=== PATIENT | female | born 1965 | race African-American/Black ===

== ENCOUNTER → 2016-07-10 | Outpatient (CLI) | payer OTHER ==
[2016-07-10 11:07] LABS: CH 30.5; CHCM 31.7; HCT 41.7 % (34.0-46.0); HGB 13.6 gm/dL (11.4-16.0); MCH 31.5 pg (25.0-35.0); MCHC 32.5 g/dL (31.0-37.0); MCV 96.8 fL (80.0-100.0); Mean Platelet Volume 7.4; RBC 4.31 m/uL (3.80-5.40); RDW 13.3 % (11.5-15.5); WBC 8.6 k/uL (3.8-10.6)
[2016-07-10 11:29] LABS: ALT 29 U/L (9-52); AST 20 U/L (14-36); Alkaline Phosphatase 60 U/L (38-126); Anion Gap 10 mmol/L; Blood Urea Nitrogen 22 mg/dL (7-17); Calcium 10.2 mg/dL (8.4-10.2); Carbon Dioxide 31 mmol/L (22-30); Chloride 101 mmol/L (98-107); Cholesterol 162 mg/dL (<200); Glucose 114 mg/dL (74-99); HDL Cholesterol 66 mg/dL (40-60); Non-African American GFR(MDRD) >60 (>60 ml/min/1.73 sqM); Potassium 4.3 mmol/L (3.5-5.1); Sodium 142 mmol/L (137-145); Total Bilirubin 0.6 mg/dL (0.2-1.3); Total Protein 7.5 g/dL (6.3-8.2); Triglycerides 111 mg/dL (<150)
[2016-07-10 12:06] LABS: Hemoglobin A1C 5.5 % (4.2-6.1)
== END | disposition home or self-care (01) ==
LOC: LABWHC1 10:44
PROVIDERS: ATTEND Internal Medicine
DX: Z00.00 Encounter for general adult medical examination without abnormal findings (principal); I11.9 Hypertensive heart disease without heart failure; E78.2 Mixed hyperlipidemia; M19.90 Unspecified osteoarthritis, unspecified site; M54.5 Low back pain; R73.9 Hyperglycemia, unspecified
CPT/HCPCS: 36415; 80053; 80061; 83036; 84439; 84443; 85027

== ENCOUNTER → 2016-10-01 | Outpatient (CLI) | payer OTHER ==
--- NOTE | 2016-10-02 11:57 | MM ---
Reason for exam: screening (asymptomatic). Last mammogram was performed 1 year and 3 months ago. History: Patient is postmenopausal. Family history of breast cancer in sister at age 42. Took hormonal contraceptives for 3 years beginning at age 22. Physical Findings: A clinical breast exam by your physician is recommended on an annual basis and results should be correlated with mammographic findings. MG Screening Mammo w CAD Bilateral CC and MLO view(s) were taken. Prior study comparison: July 16, 2015, bilateral MG screening mammo w CAD. May 15, 2014, bilateral MG screening mammo w CAD. The breast tissue is heterogeneously dense. This may lower the sensitivity of mammography. No significant changes when compared with prior studies. ASSESSMENT: Benign, BI-RAD 2 RECOMMENDATION: Routine screening mammogram of both breasts in 1 year.
== END | disposition home or self-care (01) ==
LOC: RADMAMWWP 13:39
PROVIDERS: ATTEND Internal Medicine
DX: Z12.31 Encounter for screening mammogram for malignant neoplasm of breast (principal)

== ENCOUNTER → 2017-09-15 | Outpatient (CLI) | payer OTHER ==
[2017-09-15 08:26] LABS: HCT 42.6 % (34.0-46.0); HGB 13.6 gm/dL (11.4-16.0); MCH 30.6 pg (25.0-35.0); MCV 95.7 fL (80.0-100.0); Mean Platelet Volume 7.3; Platelet Count 249 k/uL (150-450); RBC 4.45 m/uL (3.80-5.40); RDW 13.7 % (11.5-15.5); WBC 8.1 k/uL (3.8-10.6)
[2017-09-15 08:58] LABS: ALT 32 U/L (9-52); AST 25 U/L (14-36); Albumin 4.3 g/dL (3.5-5.0); Alkaline Phosphatase 54 U/L (38-126); Anion Gap 12 mmol/L; Blood Urea Nitrogen 19 mg/dL (7-17); Calcium 10.2 mg/dL (8.4-10.2); Carbon Dioxide 30 mmol/L (22-30); Chloride 102 mmol/L (98-107); Cholesterol 173 mg/dL (<200); Glucose 117 mg/dL (74-99); HDL Cholesterol 56 mg/dL (40-60); LDL Cholesterol,Calculated 86 mg/dL (0-99); Potassium 4.2 mmol/L (3.5-5.1); Sodium 144 mmol/L (137-145); Total Bilirubin 0.6 mg/dL (0.2-1.3); Total Protein 7.1 g/dL (6.3-8.2); Triglycerides 154 mg/dL (<150)
[2017-09-15 09:00] LABS: T4, Free (Free Thyroxine) 1.01 ng/dL (0.78-2.19)
--- NOTE | 2017-09-15 09:41 | XR ---
EXAMINATION TYPE: XR chest 2V DATE OF EXAM: 09/15/2017 COMPARISON: 05/23/2014 INDICATION: Hypertensive heart disease TECHNIQUE: Frontal and lateral views of the chest are obtained. FINDINGS: The heart size is normal. The pulmonary vasculature is normal. The lungs are clear. IMPRESSION: 1. No acute pulmonary process.
[2017-09-15 20:02] LABS: Hemoglobin A1C 5.9 % (4.0-6.0)
== END | disposition home or self-care (01) ==
LOC: LABWHC1 08:00
PROVIDERS: ATTEND Internal Medicine
DX: Z00.00 Encounter for general adult medical examination without abnormal findings (principal); E11.9 Type 2 diabetes mellitus without complications; I11.9 Hypertensive heart disease without heart failure; K21.0 Gastro-esophageal reflux disease with esophagitis; M19.90 Unspecified osteoarthritis, unspecified site
CPT/HCPCS: 36415; 71046; 80053; 80061; 82043; 82570; 83036; 84439; 84443; 85027

== ENCOUNTER → 2017-12-14 | Outpatient (CLI) | payer OTHER ==
[2017-12-14 13:13] VITALS: BP 171/96; PULSE 78; TEMP 98.1; BMI 37.5
--- NOTE | 2017-12-14 13:49 | P.HPOB ---
History of Present Illness H&P Date: 12/14/17 Chief Complaint: The patient is here for her routine gynecologic exam and mammogram. This is a 52-year-old with an LMP of 2010. The patient is without gynecologic complaints. She denies any postmenopausal bleeding. She is currently being treated with antibiotics for boils on her inner thighs. Review of Systems The patient has lost 3 pounds over the last 2 year. She denies respiratory, cardiac, or G.I. problems. 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 She has no other history of STDs. 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 - Past Family History Sister(s) Family Medical History: Cancer (Breast) Brother(s) Family Medical History: Cancer (Renal) Mother Family Medical History: Dementia, Diabetes Mellitus Medications and Allergies Home Medications Medication Instructions Recorded Confirmed Type Furosemide [Lasix] 20 mg PO DAILY 10/24/14 12/14/17 History HYDROcodone/APAP 7.5-325MG [[place] 1 each PO Q6HR PRN 10/24/14 12/14/17 History 7.5-325] Orphenadrine [Norflex] 100 mg PO Q12H #10 tablet.er 10/24/14 12/14/17 Rx Spironolactone [Aldactone] 25 mg PO BID 10/24/14 12/14/17 History amLODIPine [Norvasc] 10 mg PO DAILY 10/24/14 12/14/17 History cloNIDine HCL [Catapres] 0.1 mg PO TID 10/24/14 12/14/17 History Ciprofloxacin [Cipro Susp] ml PO BID 12/14/17 History Allergies Allergy/AdvReac Type Severity Reaction Status Date / Time Penicillins Allergy Unknown Verified 12/14/17 13:09 Exam Vital Signs Temp Pulse BP 12/14/17 13:09 98.1 F 78 171/96 Intake and Output 12/13/17 12/14/17 12/14/17 22:59 06:59 14:59 Other: Weight 108.862 kg Height 5'7", BMI 37.6. This is a well-developed well-nourished heavyset black female who is alert and oriented times 3 in no acute distress. HEENT: Within normal limits. NECK: Supple without mass or thyromegaly. CHEST AND LUNGS: Clear to auscultation. HEART: Regular rate and rhythm. BREASTS: Are without mass or discharge. AXILLARY EXAM: Negative for adenopathy. BACK: Negative for CVA tenderness. ABDOMEN: Soft, nontender, without palpable masses. PELVIC EXAM: Normal external genitalia with mild atrophy. Cervix and vagina appear normal with mild atrophy. There is no unusual discharge. There is no evidence of prolapse. The uterus is midposition, nongravid size and nontender. There are no palpable adnexal masses or tenderness. RECTAL EXAM: rectovaginal exam is negative for mass or tenderness and is negative for occult blood. EXTREMITIES: Nontender. There are bilateral boil type lesions on the inner thighs. One on each side. Each measures approximately 1.5 cm. Both are noninflamed. Both are nontender. IMPRESSION: 1. 52-year-old menopausal female with normal gynecologic exam. 2. Elevated blood pressure with history of chronic hypertension. PLAN: 1. Pap smear was performed. 2. Self breast awareness was discussed with the patient. 3. Screening mammogram will be done today. 4. I have recommended screening colonoscopy based on her age. She states she is in the process of arranging this through Dr. Soto. 5. Osteoporosis prevention was discussed. 6. She has been notified about her elevated blood pressure. She stated she has a way to check her own blood pressure. I recommend checking it on a regular basis and following up with Dr. Soto for blood pressure elevations. 7. She will return one year.
--- NOTE | 2017-12-16 08:59 | MM ---
Reason for exam: screening (asymptomatic). Last mammogram was performed 1 year and 2 months ago. History: Patient is postmenopausal. Family history of breast cancer in sister at age 42. Took hormonal contraceptives for 3 years beginning at age 22. Physical Findings: A clinical breast exam by your physician is recommended on an annual basis and results should be correlated with mammographic findings. MG Screening Mammo w CAD Bilateral CC and MLO view(s) were taken. Prior study comparison: October 01, 2016, bilateral MG screening mammo w CAD. July 16, 2015, bilateral MG screening mammo w CAD. The breast tissue is heterogeneously dense. This may lower the sensitivity of mammography. No significant changes when compared with prior studies. ASSESSMENT: Benign, BI-RAD 2 RECOMMENDATION: Routine screening mammogram of both breasts in 1 year.
== END | disposition home or self-care (01) ==
LOC: WWCWWP 12:41
PROVIDERS: ATTEND Obstetrics & Gynecology
DX: Z12.31 Encounter for screening mammogram for malignant neoplasm of breast (principal)
CPT/HCPCS: 77067

== ENCOUNTER → 2018-06-10 | Outpatient (CLI) | payer OTHER ==
--- NOTE | 2018-06-10 17:12 | CT ---
EXAMINATION TYPE: CT brain wo con DATE OF EXAM: 06/10/2018 COMPARISON: 06/02/2012 HISTORY: MICHEL x1 month CT DLP: 1109 mGycm Automated exposure control for dose reduction was used. FINDINGS: Cerebellar tonsils are slightly low-lying in position at the level the foramen magnum. Changes of chr onic sinusitis. Calcifications within the basal ganglia are noted and are stable from the prior exam. Ventricular system compatible with the patient's age. No midline shift or mass effect. Calvarium intact. No acute hemorrhage. IMPRESSION: NO ACUTE INTRACRANIAL PROCESS. CEREBELLAR TONSILS SLIGHTLY LOW-LYING IN POSITION WITHOUT EVIDENCE OF DISCRETE CHIARI MALFORMATION. CORRELATE WITH MRI CLINICALLY WARRANTED.
== END | disposition home or self-care (01) ==
LOC: RADCTMAIN 16:18
PROVIDERS: ATTEND Internal Medicine
DX: R51 Headache (principal)
CPT/HCPCS: 70450

== ENCOUNTER → 2018-06-15 | Outpatient (CLI) | payer OTHER ==
--- NOTE | 2018-06-16 06:26 | MR ---
EXAMINATION TYPE: MR brain wo con DATE OF EXAM: 06/15/2018 COMPARISON: CT brain from 5 days ago. HISTORY: Headaches, abnormal CT. TECHNIQUE: Multiplanar, multisequence imaging of the brain and brainstem is performed without IV cont rast. FINDINGS: Diffusion weighted images demonstrate no evidence of a recent infarct or other diffusion abnormality. There is no worrisome extraaxial fluid collection. The ventricular system and cisternal spaces are n ormal in size and appearance. The brain volume is age appropriate. There are scattered foci of T2 hy perintensity seen throughout the deep and periventricular white matter. Approximately 30-40 scattered small lesions are seen. Midline structures demonstrate normal morphology. The craniocervical junction appears within normal limits on MRI. Normal vascular flow voids are present. Some tortuous course to the posterior circulat ion is incidentally noted. Mild to moderate mucosal thickening inferiorly in left maxillary sinus is redemonstrated otherwise paranasal sinuses are clear. Globes are intact bilaterally. IMPRESSION: 1. No suspicious inferior descent of cerebellar tonsils to suggest Chiari I malformation. 2. Mild to moderate nonspecific white matter changes may be on basis of altered vascular mechanics re lated to product of migraine headaches. 3. Mild to moderate inferior chronic left maxillary sinus disease redemonstrated.
== END ==
LOC: RADMRIMAIN 18:57
PROVIDERS: ATTEND Internal Medicine
DX: R90.89 Other abnormal findings on diagnostic imaging of central nervous system (principal)
CPT/HCPCS: 70551

== ENCOUNTER 2019-03-04 14:49 | Emergency (ER) | payer OTHER ==
[2019-03-04] MEDS ORDERED: METOCLOPRAMIDE 5 MG/ML 2 ML VIAL IVP STA (15:39)
[2019-03-04] MEDS ORDERED: diphenhydrAMINE 50 MG/ML 1 ML VIAL IVP STA (15:39)
[2019-03-04] MEDS ORDERED: SODIUM CHLORIDE 0.9% 500 ML 500 ML IV STA (15:39)
[2019-03-04] MEDS ORDERED: hydrALAZINE HCL 20 MG/ML 1 ML VIAL IVP STA ×2 (15:51→16:42)
[2019-03-04] MEDS ORDERED: KETOROLAC 30 MG/ML 1 ML VIAL IVP STA (15:51)
[2019-03-04 15:57] LABS: Basophils # (A) 0.1 k/uL (0-0.2); Basophils % (A) 1 %; Eosinophils # (A) 0.2 k/uL (0-0.7); Eosinophils % (A) 2 %; HGB 13.1 gm/dL (11.4-16.0); Lymphocytes % (A) 22 %; MCH 30.4 pg (25.0-35.0); MCHC 31.2 g/dL (31.0-37.0); MCV 97.5 fL (80.0-100.0); Mean Platelet Volume 6.6; Monocytes # (A) 0.3 k/uL (0-1.0); Monocytes % (A) 3 %; Neutrophils # (A) 6.6 k/uL (1.3-7.7); Neutrophils % (A) 70 %; Platelet Count 268 k/uL (150-450); RBC 4.31 m/uL (3.80-5.40); RDW 13.2 % (11.5-15.5); WBC 9.4 k/uL (3.8-10.6)
--- NOTE | 2019-03-04 16:03 | ED ---
General Adult HPI - General Chief complaint: Headache Stated complaint: Headache/nosebleed Time Seen by Provider: 03/04/19 15:22 Source: patient, RN notes reviewed Mode of arrival: ambulatory Limitations: no limitations - History of Present Illness Initial comments: 53-year-old female with a past medical history of asthma, hypertension, chronic back problems presents to the emergency department for a chief complaint of headache. Patient states she checked her blood pressure at home has been high. States that she was on 4 different blood pressure medications however her doctor retired several months ago and she has not received refills for these. On review of her records these are Catapres, Norvasc, Aldactone, and Lasix. Patient states she has had headaches like this several times before. She denies this being the worst headache. Denies any thunderclap onset or neck stiffness or rigidity. Patient states headache has come and gone gradually. She has had this exact headaches several times prior.Patient has no other complaints at this time including shortness of breath, chest pain, abdominal pain, nausea or vomiting, or visual changes. - Related Data Home Medications Medication Instructions Recorded Confirmed Furosemide [Lasix] 20 mg PO DAILY 10/24/14 12/14/17 HYDROcodone/APAP 7.5-325MG [[place] 1 each PO Q6HR PRN 10/24/14 12/14/17 7.5-325] Spironolactone [Aldactone] 25 mg PO BID 10/24/14 12/14/17 amLODIPine [Norvasc] 10 mg PO DAILY 10/24/14 12/14/17 cloNIDine HCL [Catapres] 0.1 mg PO TID 10/24/14 12/14/17 Ciprofloxacin [Cipro Susp] ml PO BID 12/14/17 Previous Rx's Medication Instructions Recorded Orphenadrine [Norflex] 100 mg PO Q12H #10 tablet.er 10/24/14 Furosemide [Lasix] 20 mg PO BID #14 tab 03/04/19 Spironolactone [Aldactone] 25 mg PO BID #14 tablet 03/04/19 amLODIPine [Norvasc] 10 mg PO DAILY #7 tablet 03/04/19 cloNIDine HCL [Catapres] 0.1 mg PO TID #21 tab 03/04/19 Allergies Allergy/AdvReac Type Severity Reaction Status Date / Time Penicillins Allergy Unknown Verified 03/04/19 15:11 Review of Systems ROS Statement: Those systems with pertinent positive or pertinent negative responses have been documented in the HPI. ROS Other: All systems not noted in ROS Statement are negative. 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 She has no other history of STDs. History of Any Multi-Drug Resistant Organisms: None Reported Past Surgical History: Hernia Repair, Tubal Ligation Additional Past Surgical History / Comment(s): d and C Past Psychological History: No Psychological Hx Reported Smoking Status: Never smoker Past Alcohol Use History: Occasional Past Drug Use History: Cocaine, Marijuana - Past Family History Sister(s) Family Medical History: Cancer (Breast) Brother(s) Family Medical History: Cancer (Renal) Mother Family Medical History: Dementia, Diabetes Mellitus General Exam Limitations: no limitations General appearance: alert, in no apparent distress Head exam: Present: atraumatic, normocephalic, normal inspection Eye exam: Present: normal appearance, PERRL, EOMI. Absent: scleral icterus, conjunctival injection, periorbital swelling ENT exam: Present: normal exam, normal oropharynx, mucous membranes moist, TM's normal bilaterally, normal external ear exam Neck exam: Present: normal inspection, full ROM. Absent: tenderness, meningismus, lymphadenopathy Respiratory exam: Present: normal lung sounds bilaterally. Absent: respiratory distress, wheezes, rales, rhonchi, stridor Cardiovascular Exam: Present: regular rate, normal rhythm, normal heart sounds. Absent: systolic murmur, diastolic murmur, rubs, gallop, clicks Neurological exam: Present: alert, oriented X3, CN II-XII intact, normal gait, other (GCS 15) Psychiatric exam: Present: normal affect, normal mood Course Vital Signs 03/04/19 03/04/19 03/04/19 15:09 16:00 16:25 Temperature 99.4 F Pulse Rate 99 Respiratory 16 Rate Blood Pressure 178/89 175/87 180/90 O2 Sat by Pulse 96 Oximetry Medical Decision Making - Medical Decision Making Patient presents for headache and hypertension. Patient states she is out of her antihypertensives for the past several months as her doctor retired and her blood pressure has been high. States it has been causing her main headaches on and off. States she has had these headaches several times before. No symptoms of thunderclap headache. States this headache is not the worst she has had. Patient initially had a blood pressure 178/89. Patient was given hydralazine and this did improve to 158/89. Patient was also given medications for her headache and did have significant improvement in pain. Patient requesting started at this time. She'll be discharged home to follow up with primary care. I did give her referral. I also renewed her blood pressure medications for one week. - Lab Data Result diagrams: 03/04/19 15:51 03/04/19 15:51 Lab Results 03/04/19 03/04/19 Range/Units 15:51 15:51 WBC 9.4 (3.8-10.6) k/uL RBC 4.31 (3.80-5.40) m/uL Hgb 13.1 (11.4-16.0) gm/dL Hct 42.0 (34.0-46.0) % MCV 97.5 (80.0-100.0) fL MCH 30.4 (25.0-35.0) pg MCHC 31.2 (31.0-37.0) g/dL RDW 13.2 (11.5-15.5) % Plt Count 268 (150-450) k/uL Neutrophils % 70 % Lymphocytes % 22 % Monocytes % 3 % Eosinophils % 2 % Basophils % 1 % Neutrophils # 6.6 (1.3-7.7) k/uL Lymphocytes # 2.0 (1.0-4.8) k/uL Monocytes # 0.3 (0-1.0) k/uL Eosinophils # 0.2 (0-0.7) k/uL Basophils # 0.1 (0-0.2) k/uL Sodium 140 (137-145) mmol/L Potassium 4.0 (3.5-5.1) mmol/L Chloride 106 (98-107) mmol/L Carbon Dioxide 28 (22-30) mmol/L Anion Gap 6 mmol/L BUN 21 H (7-17) mg/dL Creatinine 0.94 (0.52-1.04) mg/dL Est GFR (CKD-EPI)AfAm 81 (>60 ml/min/1.73 sqM) Est GFR (CKD-EPI)NonAf 71 (>60 ml/min/1.73 sqM) Glucose 92 (74-99) mg/dL Calcium 9.4 (8.4-10.2) mg/dL Total Bilirubin 0.7 (0.2-1.3) mg/dL AST 28 (14-36) U/L ALT 31 (9-52) U/L Alkaline Phosphatase 64 (38-126) U/L Total Protein 6.8 (6.3-8.2) g/dL Albumin 4.0 (3.5-5.0) g/dL Disposition Clinical Impression: Hypertension, Headache Disposition: HOME SELF-CARE Condition: Good Instructions (If sedation given, give patient instructions): Acute Headache (ED), Hypertension (ED) Additional Instructions: Please take blood pressure medications as directed. Please follow-up with primary care in 1-2 days. If you have any worsening symptoms return to the emergency department. Prescriptions: Spironolactone [Aldactone] 25 mg PO BID #14 tablet cloNIDine HCL [Catapres] 0.1 mg PO TID #21 tab Furosemide [Lasix] 20 mg PO BID #14 tab amLODIPine [Norvasc] 10 mg PO DAILY #7 tablet Is patient prescribed a controlled substance at d/c from ED?: No Referrals: Otf Brownlee MD [REFERRING] - 1-2 days Time of Disposition: 17:03
[2019-03-04 16:17] LABS: Calcium 9.4 mg/dL (8.4-10.2); Total Bilirubin 0.7 mg/dL (0.2-1.3); Total Protein 6.8 g/dL (6.3-8.2)
[2019-03-04 17:12] VITALS: BP 158/91; PULSE 97; RESP 18; TEMP 98.7
== END 2019-03-04 17:25 | disposition home or self-care (01) ==
LOC: EC 14:49
DX: I10 Essential (primary) hypertension (principal); R51 Headache; Z76.0 Encounter for issue of repeat prescription; Z88.0 Allergy status to penicillin; Z79.899 Other long term (current) drug therapy; Z53.8 Procedure and treatment not carried out for other reasons
CPT/HCPCS: 36415; 80053; 85025; 99283; 96374; 96375 ×3; 96361; J0360; J1200; J2765; J1885

== ENCOUNTER 2019-04-17 23:15 | Emergency (ER) | payer OTHER ==
[2019-04-17 23:23] VITALS: BP 183/96; PULSE 105; TEMP 98.3
--- NOTE | 2019-04-17 23:56 | ED ---
ENT HPI - General Chief complaint: ENT Stated complaint: Throat Pain Time Seen by Provider: 04/17/19 23:30 Source: patient, RN notes reviewed, old records reviewed Mode of arrival: ambulatory - History of Present Illness Initial comments: This is a 54-year-old female DF for evaluation 2 weeks of severe sore throat difficulty swallowing and dysphagia. She is able to eat and drink. She does admit to occasional fevers patient's medical history of diabetes high blood pressure no sick contacts or travel history. Patient currently states the pain is worse on the right than the left worse when she swallows MD complaint: sore throat -: days(s) Location: R ear, throat Severity: mild Severity scale (1-10): 3 Quality: aching Consistency: constant Improves with: none Worsens with: none Context- Ear: recent illness Associated Symptoms: cough, pain with swallowing - Related Data Home Medications Medication Instructions Recorded Confirmed Furosemide [Lasix] 20 mg PO DAILY 10/24/14 12/14/17 HYDROcodone/APAP 7.5-325MG [[place] 1 each PO Q6HR PRN 10/24/14 12/14/17 7.5-325] Spironolactone [Aldactone] 25 mg PO BID 10/24/14 12/14/17 amLODIPine [Norvasc] 10 mg PO DAILY 10/24/14 12/14/17 cloNIDine HCL [Catapres] 0.1 mg PO TID 10/24/14 12/14/17 Ciprofloxacin [Cipro Susp] ml PO BID 12/14/17 Previous Rx's Medication Instructions Recorded Orphenadrine [Norflex] 100 mg PO Q12H #10 tablet.er 10/24/14 Furosemide [Lasix] 20 mg PO BID #14 tab 03/04/19 Spironolactone [Aldactone] 25 mg PO BID #14 tablet 03/04/19 amLODIPine [Norvasc] 10 mg PO DAILY #7 tablet 03/04/19 cloNIDine HCL [Catapres] 0.1 mg PO TID #21 tab 03/04/19 Allergies Allergy/AdvReac Type Severity Reaction Status Date / Time Penicillins Allergy Unknown Verified 04/17/19 23:23 Review of Systems ROS Statement: Those systems with pertinent positive or pertinent negative responses have been documented in the HPI. ROS Other: All systems not noted in ROS Statement are negative. 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 She has no other history of STDs. History of Any Multi-Drug Resistant Organisms: None Reported Past Surgical History: Hernia Repair, Tubal Ligation Additional Past Surgical History / Comment(s): d and C Past Psychological History: No Psychological Hx Reported Smoking Status: Never smoker Past Alcohol Use History: Occasional Past Drug Use History: None Reported - Past Family History Sister(s) Family Medical History: Cancer (Breast) Brother(s) Family Medical History: Cancer (Renal) Mother Family Medical History: Dementia, Diabetes Mellitus General Exam General appearance: alert, in no apparent distress Head exam: Present: atraumatic, normocephalic, normal inspection Eye exam: Present: normal appearance, PERRL, EOMI. Absent: scleral icterus, conjunctival injection, periorbital swelling ENT exam: Present: other (Significant bilateral tonsillar erythema tonsillar stones right-sided). Absent: normal oropharynx (Erythema normal Sof-Rol elevation right sided lymphadenopathy anterior cervical) Neck exam: Present: normal inspection. Absent: tenderness, meningismus, lymphadenopathy Respiratory exam: Present: normal lung sounds bilaterally. Absent: respiratory distress, wheezes, rales, rhonchi, stridor Cardiovascular Exam: Present: normal rhythm, tachycardia, normal heart sounds. Absent: systolic murmur, diastolic murmur, rubs, gallop, clicks GI/Abdominal exam: Present: soft, normal bowel sounds. Absent: distended, tenderness, guarding, rebound, rigid Extremities exam: Present: normal inspection, full ROM, normal capillary refill. Absent: tenderness, pedal edema, joint swelling, calf tenderness Back exam: Present: normal inspection Neurological exam: Present: alert, oriented X3, CN II-XII intact Psychiatric exam: Present: normal affect, normal mood Skin exam: Present: warm, dry, intact, normal color. Absent: rash Course Vital Signs 04/17/19 23:20 Temperature 98.3 F Pulse Rate 105 H Respiratory 19 Rate Blood Pressure 183/96 O2 Sat by Pulse 98 Oximetry - Reevaluation(s) Reevaluation #1: 04/17/19 23:55 Medical record is reviewed Reevaluation #2: 04/17/19 23:55 Patient able to eat and drink Medical Decision Making - Medical Decision Making 54 female here for evaluation, patient with pharyngitis treat appropriately patient can be discharged - Lab Data Lab Results 04/17/19 Range/Units 23:26 Group A Strep Rapid Negative (Negative) Disposition Clinical Impression: Sore throat, Acute pharyngitis Disposition: HOME SELF-CARE Condition: Good Instructions (If sedation given, give patient instructions): Pharyngitis (ED) Is patient prescribed a controlled substance at d/c from ED?: No Referrals: None,Stated [Primary Care Provider] - 1-2 days
[2019-04-18 00:04] VITALS: RESP 20
== END 2019-04-18 00:04 | disposition home or self-care (01) ==
LOC: EC 23:15
DX: J02.9 Acute pharyngitis, unspecified (principal); I10 Essential (primary) hypertension; E11.9 Type 2 diabetes mellitus without complications; Z79.899 Other long term (current) drug therapy; Z88.0 Allergy status to penicillin
CPT/HCPCS: 87081; 87430; 99283

== ENCOUNTER → 2019-09-15 | Outpatient (CLI) | payer MEDICAID | END | disposition home or self-care (01) | LOC: LABWHC1 09:05 | PROVIDERS: ATTEND Surgery Plastic and Reconstructive Surgery | DX: Z11.59 Encounter for screening for other viral diseases (principal) ==

== ENCOUNTER 2019-09-20 09:10 | Day surgery (SDC) | payer MEDICAID, OTHER ==
[2019-09-18 11:28] VITALS: BMI 34.9
--- NOTE | 2019-09-19 20:45 | P.GSHP ---
History of Present Illness H&P Date: 09/20/19 CHIEF COMPLAINT: Colon screen HISTORY OF PRESENT ILLNESS: The patient is a 54-year-old female who presents for colon screen. Lower endoscopy was offered for further evaluation and management. PAST MEDICAL HISTORY: Please see list. PAST SURGICAL HISTORY: Please see list. MEDICATIONS: Please see list. ALLERGIES: Please see list. SOCIAL HISTORY: No illicit drug use FAMILY HISTORY: No reports of Crohn disease or ulcerative colitis. REVIEW OF ORGAN SYSTEMS: CONSTITUTIONAL: No reports of fevers or chills. PHYSICAL EXAM: VITAL SIGNS: Stable GENERAL: Well-developed pleasant in no acute distress. HEENT: No scleral icterus. Extraocular movements grossly intact. Moist buccal mucosa. NECK: Supple without lymphadenopathy. CHEST: Unlabored respirations. Equal bilateral excursions. CARDIOVASCULAR: Regular rate and rhythm. Distal 2+ pulses. ABDOMEN: Soft, nontender, nondistended. MUSCULOSKELETAL: No clubbing, cyanosis, or edema. ASSESSMENT: 1. Colon screen. PLAN: 1. Recommend proceeding with a lower endoscopy Past Medical History Past Medical History: Asthma, GERD/Reflux, Hypertension, Sleep Apnea/CPAP/BIPAP Additional Past Medical History / Comment(s): Asthma hx. "Borderline diabetic." OA knees, hand; Chronic back pain, 2 herniated discs. Tonsil stones, recently treated. Not using CPAP currently. History of Any Multi-Drug Resistant Organisms: None Reported Past Surgical History: Hernia Repair, Tubal Ligation Additional Past Surgical History / Comment(s): D&C. ORIF Rt 4th finger. Past Anesthesia/Blood Transfusion Reactions: Previous Problems w/ Anesthesia Additional Past Anesthesia/Blood Transfusion Reaction / Comment(s): Hard to awaken from anesthesia. Smoking Status: Never smoker - Past Family History Sister(s) Family Medical History: Cancer Additional Family Medical History / Comment(s): breast cancer Brother(s) Family Medical History: Cancer Mother Family Medical History: Dementia, Diabetes Mellitus Medications and Allergies Home Medications Medication Instructions Recorded Confirmed Type amLODIPine [Norvasc] 10 mg PO DAILY #7 tablet 03/04/19 09/18/19 Rx Acetaminophen [Tylenol Extra 500 mg PO DIRECTED PRN 09/18/19 09/18/19 History Strength] Acetaminophen/Diphenhydramine 1 tab PO HS PRN 09/18/19 09/18/19 History [Tylenol PM 500-25mg] Furosemide [Lasix] 20 mg PO DAILY 09/18/19 09/18/19 History Spironolactone [Aldactone] 50 mg PO BID 09/18/19 09/18/19 History cloNIDine HCL [Catapres] 0.1 mg PO BID 09/18/19 09/18/19 History Allergies Allergy/AdvReac Type Severity Reaction Status Date / Time Penicillins Allergy Unknown Verified 09/18/19 10:56
[~2019-09-20 09:10] MED LIST: LACTATED RINGERS 1,000 ML IV SCH; LIDOCAINE 1% (10MG/ML) FOR IV START INTRADERMA PRN
[2019-09-20 09:37] VITALS: RESP 16; TEMP 97.3
[2019-09-20] MEDS ORDERED: PROPOFOL 10 MG/ML 20 ML VIAL IV ONE (10:14)
--- NOTE | 2019-09-20 10:18 | P.HPADDEND ---
H&P Addendum H&P Addendum Date: 09/20/19 Patient presents for first colonoscopy exam. Denies any family history of colon polyps of colon cancers. We'll proceed with lower endoscopy.
[2019-09-20 10:33] VITALS: BP 118/67; PULSE 77
--- NOTE | 2019-09-20 10:35 | P.PCN ---
Date of Procedure: 09/20/19 Description of Procedure: PREOPERATIVE DIAGNOSIS: Colonoscopy screening. POSTOPERATIVE DIAGNOSIS: Colonoscopy screening. Diverticulosis, scattered. OPERATION: Colonoscopy to the ileocecal valve and appendiceal orifice. SURGEON: Maureen Garnica MD. ANESTHESIA: MAC. INDICATIONS: The patient is a 54-year-old female who presents for her first colonoscopy screening. Benefits and risks were described and informed consent was obtained. DESCRIPTION OF PROCEDURE: The patient had undergone Suprep. She had been brought into the operating room and laid in the left lateral decubitus position. After adequate intravenous sedation, the rectum was examined with 2% lidocaine jelly. No external hemorrhoids were encountered. The rectal tone was within normal limits. No lesions were palpated in the rectal vault. An Olympus colonoscope was advanced until the ileocecal valve and appendiceal orifice were clearly viewed. The prep was excellent with clear visualization of the mucosal folds. The scope was removed with visualization of each mucosal fold. Few very small scattered diverticulosis was encountered. No colonic polyps were found. No evidence of focal colitis was found. Retroflexion of the scope demonstrated no internal hemorrhoids without active bleeding or inflammation. The colon was desufflated. The patient had tolerated the procedure well. Withdrawal time was over 6 minutes. FINDINGS: Aronchick preparation quality scale 1 (1-5) No internal hemorrhoids No external prolapsed hemorrhoids. No arteriovenous malformations. No adenomatous polyps. No focal colitis. RECOMMENDATIONS: Lower endoscopy every 10 years per screening guidelines, 2029 Plan - Discharge Summary Discharge Rx Participant: No New Discharge Prescriptions: Continue amLODIPine [Norvasc] 10 mg PO DAILY #7 tablet Acetaminophen [Tylenol Extra Strength] 500 mg PO DIRECTED PRN PRN Reason: Pain Acetaminophen/Diphenhydramine [Tylenol PM 500-25mg] 1 tab PO HS PRN PRN Reason: sleep Furosemide [Lasix] 20 mg PO DAILY cloNIDine HCL [Catapres] 0.1 mg PO BID Spironolactone [Aldactone] 50 mg PO BID Discharge Medication List amLODIPine [Norvasc] 10 mg PO DAILY #7 tablet 03/04/19 [Rx] Acetaminophen [Tylenol Extra Strength] 500 mg PO DIRECTED PRN 09/18/19 [History] Acetaminophen/Diphenhydramine [Tylenol PM 500-25mg] 1 tab PO HS PRN 06/01/20 [History] Furosemide [Lasix] 20 mg PO DAILY 09/18/19 [History] Spironolactone [Aldactone] 50 mg PO BID 09/18/19 [History] cloNIDine HCL [Catapres] 0.1 mg PO BID 09/18/19 [History] Follow up Appointment(s)/Referral(s): Maureen Garnica MD [STAFF PHYSICIAN] - As Needed Patient Instructions/Handouts: *[facility] - (Anesthesia) Endoscopy Discharge Instructions, Colonoscopy (DC), Diverticulosis Diet (GEN), Diverticulosis (GEN) Activity/Diet/Wound Care/Special Instructions: Repeat colonoscopy 10 years, 2029 Discharge Disposition: HOME SELF-CARE
== END 2019-09-20 11:06 | disposition home or self-care (01) ==
LOC: ORWHC2ENDO 09:10
PROVIDERS: ATTEND Surgery Plastic and Reconstructive Surgery
DX: K57.30 Diverticulosis of large intestine without perforation or abscess without bleeding (principal); I10 Essential (primary) hypertension; J45.909 Unspecified asthma, uncomplicated; G47.33 Obstructive sleep apnea (adult) (pediatric); K21.9 Gastro-esophageal reflux disease without esophagitis; E11.9 Type 2 diabetes mellitus without complications; M54.9 Dorsalgia, unspecified; G89.29 Other chronic pain; M17.9 Osteoarthritis of knee, unspecified; Z79.891 Long term (current) use of opiate analgesic; Z79.899 Other long term (current) drug therapy; Z99.89 Dependence on other enabling machines and devices; Z88.0 Allergy status to penicillin; Z98.51 Tubal ligation status; Z98.890 Other specified postprocedural states; Z80.3 Family history of malignant neoplasm of breast; Z83.3 Family history of diabetes mellitus; Z81.8 Family history of other mental and behavioral disorders
CPT/HCPCS: 45378; J2704

== ENCOUNTER 2020-01-29 21:04 | Emergency (ER) | payer MEDICAID, OTHER ==
[2020-01-29 21:08] VITALS: BP 184/91; PULSE 93; RESP 18; TEMP 98
--- NOTE | 2020-01-29 22:03 | ED ---
ENT HPI - General Chief complaint: ENT Stated complaint: LT ear bleeding Time Seen by Provider: 01/29/20 21:13 Source: patient Mode of arrival: ambulatory Limitations: no limitations - History of Present Illness Initial comments: Patient is a 54-year-old female presenting to the emergency Department with complaints of blood coming from her left ear since last night. Patient states she recently got a little bit of water in her left ear after getting her hair done and she feels like she may have scratched her ear with her nail. She denies any ear pain, recent fever or chills, sinus drainage or congestion. She denies any trauma or head injury. She has no further complaints. - Related Data Home Medications Medication Instructions Recorded Confirmed Acetaminophen [Tylenol Extra 500 mg PO DIRECTED PRN 09/18/19 09/18/19 Strength] Acetaminophen/Diphenhydramine 1 tab PO HS PRN 09/18/19 09/18/19 [Tylenol PM 500-25mg] Furosemide [Lasix] 20 mg PO DAILY 09/18/19 09/18/19 Spironolactone [Aldactone] 50 mg PO BID 09/18/19 09/18/19 cloNIDine HCL [Catapres] 0.1 mg PO BID 09/18/19 09/18/19 Previous Rx's Medication Instructions Recorded amLODIPine [Norvasc] 10 mg PO DAILY #7 tablet 03/04/19 Polymyxin B-Trimeth Sulf Ophth 2 drops LEFT EAR Q6H 5 Days #1 01/29/20 [Polytrim Opthalmic] bottle Allergies Allergy/AdvReac Type Severity Reaction Status Date / Time Penicillins Allergy Unknown Verified 01/29/20 21:08 Review of Systems ROS Statement: Those systems with pertinent positive or pertinent negative responses have been documented in the HPI. ROS Other: All systems not noted in ROS Statement are negative. 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 She has no other history of STDs. History of Any Multi-Drug Resistant Organisms: None Reported Past Surgical History: No Surgical Hx Reported, Orthopedic Surgery Additional Past Surgical History / Comment(s): d and C Past Psychological History: No Psychological Hx Reported Smoking Status: Never smoker Past Drug Use History: None Reported - Past Family History Sister(s) Family Medical History: Cancer Brother(s) Family Medical History: Cancer Mother Family Medical History: Dementia, Diabetes Mellitus General Exam - General Exam Comments Initial Comments: GENERAL: Patient is well-developed and well-nourished. Patient is nontoxic and in no acute distress. HEAD: Atraumatic, normocephalic. EYES: Pupils equal round and reactive to light, extraocular movements intact, sclera anicteric, conjunctiva are normal. Eyelids were unremarkable. ENT: Right TM and EAC appear normal, left EAC appears to have an abrasion at the 6 o'clock position with some mild dried blood. TM appears normal. nares patent, oropharynx clear without exudates. Moist mucous membranes. NECK: Normal range of motion, supple without lymphadenopathy or JVD. LUNGS: Unlabored respirations. Breath sounds clear to auscultation bilaterally and equal. No wheezes rales or rhonchi. HEART: Regular rate and rhythm without murmurs, rubs or gallops. ABDOMEN: Soft, nontender, normoactive bowel sounds. No guarding, no rebound. No masses appreciated. : Deferred MUSCULOSKELETAL: Normal extremities with adequate strength and normal range of motion, no pitting or edema. No clubbing or cyanosis. NEUROLOGICAL: Patient is alert and oriented x 3. Motor and sensory are also intact. Normal speech, normal gait. PSYCH: Normal mood, normal affect. SKIN: Warm, Dry, normal turgor, no rashes or lesions noted. Limitations: no limitations Course Vital Signs 01/29/20 21:04 Temperature 98.0 F Pulse Rate 93 Respiratory 18 Rate Blood Pressure 184/91 O2 Sat by Pulse 95 Oximetry Medical Decision Making - Medical Decision Making Patient is a 54-year-old female here for blood from her left ear since yesterday. Upon exam, she appears to have a mild abrasion to her left ear canal. Her TM appears to be normal. She is having very little pain at this time. I will prescribe patient and antibiotic drops to use in her ear, recommended not putting anything into her left ear including a Q-tip for her finger. I also gave her referral to ENT for follow-up. Patient is stable for discharge and she is in agreement with this plan of care. Return parameters were discussed with the patient she verbalized understanding. Disposition Clinical Impression: Bleeding from left ear Disposition: HOME SELF-CARE Condition: Stable Instructions (If sedation given, give patient instructions): Earache (ED) Additional Instructions: Please return to the Emergency Department if symptoms worsen or any other concerns. Use antibiotic eardrops as discussed. Follow up with ENT. Prescriptions: Polymyxin B-Trimeth Sulf Ophth [Polytrim Opthalmic] 2 drops LEFT EAR Q6H 5 Days #1 bottle Is patient prescribed a controlled substance at d/c from ED?: No Referrals: None,Stated [Primary Care Provider] - 1-2 days Filiberto Montes MD [STAFF PHYSICIAN] - 1-2 days
== END 2020-01-29 22:15 | disposition home or self-care (01) ==
LOC: EC 21:04
DX: H92.22 Otorrhagia, left ear (principal); S00.412A Abrasion of left ear, initial encounter; I10 Essential (primary) hypertension; Z79.899 Other long term (current) drug therapy; Z88.0 Allergy status to penicillin
CPT/HCPCS: 99282

== ENCOUNTER → 2021-01-08 | Outpatient (CLI) | payer MEDICAID, OTHER | END | disposition home or self-care (01) | LOC: LABWHC1 14:05 | PROVIDERS: ATTEND Emergency Medicine | DX: Z20.822 Contact with and (suspected) exposure to COVID-19 (principal) | CPT/HCPCS: 87635 ==

== ENCOUNTER → 2021-01-09 | Outpatient (CLI) | payer MEDICAID, OTHER | END | disposition home or self-care (01) | LOC: LABWHC1 15:45 | PROVIDERS: ATTEND Emergency Medicine | DX: Z53.9 Procedure and treatment not carried out, unspecified reason (principal) ==

== ENCOUNTER → 2021-01-10 | Outpatient (CLI) | payer MEDICAID, OTHER | END | disposition home or self-care (01) | LOC: LABWHC1 11:57 | PROVIDERS: ATTEND Emergency Medicine | DX: Z20.822 Contact with and (suspected) exposure to COVID-19 (principal) | CPT/HCPCS: 87635 ==

== ENCOUNTER 2021-03-07 16:00 | Emergency (ER) | payer MEDICAID ==
--- NOTE | 2021-03-07 16:59 | ED ---
General Adult HPI - General Chief complaint: Nausea/Vomiting/Diarrhea Stated complaint: Earache,Nausea,Wants COVID Test Time Seen by Provider: 03/07/21 16:13 Source: patient, RN notes reviewed Mode of arrival: ambulatory Limitations: no limitations - History of Present Illness Initial comments: Patient is a 55-year-old female with history of asthma, hypertension, presenting to the emergency Department with complaints of an earache, body aches, sore throat that started yesterday. She liked to be tested for Covid. She also states that she's been having some chest tightness that started today as well. She states she does have a mild cough and thinks it could be coming from that, she had the same feeling when she had covid in the past. She denies any radiation of this pain or pressure. She denies any abdominal pain, no nausea or vomiting. She denies any shortness of breath. She denies history of heart disease. She has no further complaints. Her vital signs are stable upon arrival. - Related Data Previous Rx's Medication Instructions Recorded amLODIPine [Norvasc] 10 mg PO DAILY #7 tablet 03/04/19 Allergies Allergy/AdvReac Type Severity Reaction Status Date / Time Penicillins Allergy Unknown Verified 03/07/21 17:04 Review of Systems ROS Statement: Those systems with pertinent positive or pertinent negative responses have been documented in the HPI. ROS Other: All systems not noted in ROS Statement are negative. 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 She has no other history of STDs. History of Any Multi-Drug Resistant Organisms: None Reported Past Surgical History: No Surgical Hx Reported, Orthopedic Surgery Additional Past Surgical History / Comment(s): d and C Past Psychological History: No Psychological Hx Reported Smoking Status: Never smoker Past Alcohol Use History: None Reported Past Drug Use History: None Reported - Past Family History Sister(s) Family Medical History: Cancer Brother(s) Family Medical History: Cancer Mother Family Medical History: Dementia, Diabetes Mellitus General Exam - General Exam Comments Initial Comments: GENERAL: Patient is well-developed and well-nourished. Patient is nontoxic and in no acute distress. HEAD: Atraumatic, normocephalic. EYES: Pupils equal round and reactive to light, extraocular movements intact, sclera anicteric, conjunctiva are normal. Eyelids were unremarkable. ENT: TMs normal, nares patent, oropharynx clear without exudates. Moist mucous membranes. NECK: Normal range of motion, supple without lymphadenopathy or JVD. LUNGS: Unlabored respirations. Breath sounds clear to auscultation bilaterally and equal. No wheezes rales or rhonchi. HEART: Regular rate and rhythm without murmurs, rubs or gallops. ABDOMEN: Soft, nontender, normoactive bowel sounds. No guarding, no rebound. No masses appreciated. MUSCULOSKELETAL: Normal extremities with adequate strength and normal range of motion, no pitting or edema. No clubbing or cyanosis. NEUROLOGICAL: Patient is alert and oriented x 3. SKIN: Warm, Dry, normal turgor, no rashes or lesions noted. Limitations: no limitations Course Vital Signs 03/07/21 16:06 Temperature 98.8 F Pulse Rate 99 Respiratory 16 Rate Blood Pressure 181/86 O2 Sat by Pulse 99 Oximetry EKG Findings - EKG Comments: EKG Findings:: Normal sinus rhythm, possible left atrial enlargement, left axis deviation, incomplete RBB, no signs of acute ST segment elevation. Ventricular rate 81, MA interval 162, QTC 400. Medical Decision Making - Medical Decision Making Patient is a 55-year-old female here for a viral type symptoms that started yesterday, she is also complaining of chest tightness that started today. No radiation of the pain, no cardiac history in the past. Her vitals are stable up on arrival. EKG showed no acute process, chest x-ray is unremarkable, rapid coitus negative. Patient refused any blood work. I discussed with her the competition Hollis from an elevated troponin and her cardiac event, she continues to refuse. I discussed with her symptoms are most likely viral. I recommended a decongestant for her ear pressure, may take Tylenol or Motrin for any fevers or body aches. She can follow up with her primary care. She is agreeable to this plan of care and she stable for discharge. Case discussed with Dr. Hill. - Lab Data Lab Results 03/07/21 Range/Units 17:08 Coronavirus (PCR) Not Detected (Not Detectd) Disposition Clinical Impression: Viral illness Disposition: HOME SELF-CARE Condition: Stable Instructions (If sedation given, give patient instructions): Viral Syndrome (ED) Additional Instructions: Please return to the Emergency Department if symptoms worsen or any other concerns. Recommend Tylenol and/or Motrin for body aches, sore throat. Recommended decongestant for ear pressure. Follow-up with your primary care. Is patient prescribed a controlled substance at d/c from ED?: No Referrals: None,Stated [Primary Care Provider] - 1-2 days Time of Disposition: 17:52
--- NOTE | 2021-03-07 17:04 | XR ---
EXAMINATION TYPE: XR chest 2V DATE OF EXAM: 03/07/2021 COMPARISON: Chest x-ray September 15, 2017 HISTORY: Shortness of breath TECHNIQUE: Frontal and lateral views of the chest are obtained. FINDINGS: There is no new suspicious focal air space opacity, pleural effusion, or pneumothorax seen . The cardiac silhouette size remains within normal limits. Overlying bra strap on current study. T he osseous structures are intact. IMPRESSION: No acute pulmonary process. No significant change from prior.
[2021-03-07 18:07] VITALS: BP 162/81; PULSE 96; RESP 20; TEMP 98.2
== END 2021-03-07 18:06 | disposition home or self-care (01) ==
LOC: EC 16:00
DX: B34.9 Viral infection, unspecified (principal); J45.909 Unspecified asthma, uncomplicated; I10 Essential (primary) hypertension; Z20.822 Contact with and (suspected) exposure to COVID-19; Z88.0 Allergy status to penicillin
CPT/HCPCS: 71046; 87635; 93005; 99285

== ENCOUNTER → 2022-02-10 | Outpatient (CLI) | payer MEDICAID ==
[2022-02-10 09:59] VITALS: BP 163/111; PULSE 84; RESP 18; TEMP 98.9
--- NOTE | 2022-02-10 10:47 | P.HPOB ---
History of Present Illness H&P Date: 02/10/22 Chief Complaint: The patient is here for her routine gynecologic exam and ma mmogram. This is a 56-year-old with an LMP of 2010. The patient is without gynecologic complaints and denies any postmenopausal bleeding. Review of Systems The patient has lost 22 pounds over the for last years. Weight loss has been intentional. She denies respiratory or cardiac problems. GI: Occasional constipation and problems with hemorrhoids. 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 She has no other history of STDs. History of Any Multi-Drug Resistant Organisms: None Reported Past Surgical History: No Surgical Hx Reported, Orthopedic Surgery Additional Past Surgical History / Comment(s): D&C. Colonoscopy 2019. Past Psychological History: No Psychological Hx Reported Smoking Status: Never smoker Past Alcohol Use History: Occasional (3 or 4 per month.) Past Drug Use History: Marijuana (Infrequent marijuana use.) Additional History: She has been since 1997. 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 - Past Family History Sister(s) Family Medical History: Cancer Additional Family Medical History / Comment(s): Breast cancer. Brother(s) Family Medical History: Cancer Additional Family Medical History / Comment(s): Renal cancer. Mother Family Medical History: Dementia, Diabetes Mellitus Medications and Allergies Home Medications Medication Instructions Recorded Confirmed Type amLODIPine [Norvasc] 10 mg PO DAILY #7 tablet 03/04/19 02/10/22 Rx Allergies Allergy/AdvReac Type Severity Reaction Status Date / Time Penicillins Allergy Unknown Verified 02/10/22 09:55 Exam Vital Signs Temp Pulse Resp BP Pulse Ox 02/10/22 09:55 98.9 F 84 18 163/111 99 Intake and Output 02/09/22 02/10/22 02/10/22 22:59 06:59 14:59 Other: Weight 97.522 kg Height 5 feet 7 inches, weight 215 pounds, BMI 33.7. Repeat blood pressure 172/100. This is a well-developed well-nourished black female who is alert and oriented times 3 in no acute distress. HEENT: Within normal limits. NECK: Supple without mass or thyromegaly. CHEST AND LUNGS: Clear to auscultation. HEART: Regular rate and rhythm. BREASTS: Are without mass or discharge. AXILLARY EXAM: Negative for adenopathy. BACK: Negative for CVA tenderness. ABDOMEN: Soft, nontender, without palpable masses. PELVIC EXAM: Normal external genitalia with minimal atrophy. Cervix and vagina appear normal with minimal atrophy. There is no unusual discharge. There is no evidence of prolapse. The uterus is midposition, nongravid size and nontender. There are no palpable adnexal masses or tenderness. RECTAL EXAM: Rectovaginal exam is negative for mass or tenderness and is positive for occult blood. EXTREMITIES: Nontender. IMPRESSION: 1. 56-year-old menopausal female with normal gynecologic exam. 2. History of chronic hypertension with elevated blood pressure. 3. Hemoccult positive stool with rectal exam. The patient has been complaining of constipation and problems with hemorrhoids. 4. Previous Pap smear on 12/14/2017 showed ASCUS with negative high-risk HPV testing. PLAN: 1. Pap smear cotest was performed. 2. Self breast awareness was discussed with the patient. We have also discussed symptoms associated with inflammatory breast cancer. 3. Screening mammogram will be done today. 4. Osteoporosis prevention was discussed. I have stressed the importance of adequate calcium, vitamin D and regular exercise. Recommended amounts of calcium and vitamin D were also discussed. 5. We have discussed her elevated blood pressure. She states she has not been taking her blood pressure medication for several days. She previously saw Dr. Vijay Soto as her PCP, but has not been seen anybody on a regular basis since Dr. Soto retired. She still has her blood pressure medication. She states she will take it as directed. I have also recommended that she find a new PCP as soon as possible. I have also recommended that she check her own blood pressure at home on a regular basis. She states she will look into getting a blood pressure cuff for this. 6. She had a colonoscopy in 2019 which showed diverticulosis. This was done by Dr. Mosqueda. I recommended that she increase the fiber in her diet to avoid constipation and to avoid hard stools aggravating hemorrhoids. I have given her a fecal occult blood test kits to repeat the testing for blood with stool samples that she will collect at home. She will increase the fiber in her diet and once she has soften the stools she will repeat the fecal occult blood test. The order slip was given to the patient for this and she will return this to the lab after she has collected the samples. If these remain positive, we will refer her to Dr. Mosqueda for possible repeat colonoscopy. 7. She has completed her Covid vaccination series and has received a booster. 8. She was advised to return in one year for her annual well woman exam and as needed.
--- NOTE | 2022-02-11 11:49 | MM ---
Reason for Exam: Screening (asymptomatic). Last mammogram was performed 4 year(s) and 2 month(s) ago. Patient History: Menarche at age 19. First Full-Term at age 29. Postmenopausal. Hormonal Contraceptives, starting at age 22 for 3 years. Sister had breast cancer, age 42. Risk Values: Ladan 5 year model risk: 2.0%. NCI Lifetime model risk: 14.5%. Prior Study Comparison: 07/16/2015 Bilateral Screening Mammogram, [facility]. 10/01/2016 Bilateral Screening Mammogram, [facility]. 12/14/2017 Bilateral Screening Mammogram, [facility]. Tissue Density: The breast tissue is heterogeneously dense. This may lower the sensitivity of mammography. Findings: Analyzed By CAD. Benign-appearing bilateral axillary lymph nodes are seen. There is no suspicious new group of microcalcifications or new suspicious mass in either breast. Overall Assessment: Negative, BI-RAD 1 Management: Screening Mammogram of both breasts in 1 year. A clinical breast exam by your physician is recommended on an annual basis and results should be correlated with mammographic findings. Electronically signed and approved by: Rudolph Costello M.D.
== END ==
LOC: WWCWWP 09:40
PROVIDERS: ATTEND Obstetrics & Gynecology
DX: Z01.419 Encounter for gynecological examination (general) (routine) without abnormal findings (principal); Z12.31 Encounter for screening mammogram for malignant neoplasm of breast; I10 Essential (primary) hypertension; K64.9 Unspecified hemorrhoids; R87.610 Atypical squamous cells of undetermined significance on cytologic smear of cervix (ASC-US); Z88.0 Allergy status to penicillin
CPT/HCPCS: 77063; 77067

== ENCOUNTER → 2022-03-30 | Outpatient (CLI) | payer MEDICAID, OTHER | END | disposition home or self-care (01) | LOC: LABMAIN 15:33 | PROVIDERS: ATTEND Emergency Medicine | DX: U07.1 COVID-19 (principal) | CPT/HCPCS: 87635 ==